=== PATIENT | male | born 1970 | race African-American/Black ===

== ENCOUNTER 2020-03-22 15:23 | Inpatient (IN) | payer OTHER ==
[2020-03-22 17:31] VITALS: BMI 28.1
--- NOTE | 2020-03-22 18:00 | HP ---
CIWA Score Nausea/Vomitin-No Nausea/No Vomiting Muscle Tremors: None Anxiety: 1-Mildly Anxious Agitation: 0-Normal Activity Paroxysmal Sweats: No Perspiration Orientation: 0-Oriented Tacttile Disturbances: 0-None Auditory Disturbances: 0-None Visual Disturbances: 0-None Headache: 0-None Present CIWA-Ar Total Score: 1 - Admission Criteria OASAS Guidelines: Admission for Medically Managed Detox: Requires at least one of the followin. CIWA greater than 12 2. Seizures within the past 24 hours 3. Delirium tremens within the past 24 hours 4. Hallucinations within the past 24 hours 5. Acute intervention needed for co occurring medical disorder 6. Acute intervention needed for co occurring psychiatric disorder 7. Severe withdrawal that cannot be handled at a lower level of care (continued vomiting, continued diarrhea, abnormal vital signs) requiring intravenous medication and/or fluids 8. Admitting History and Physical - Admission Chief Complaint: I am here for rehab. History of Present Illness: Patient is a 50 year old male with past medical history of major depression( no Wellbutrin), alcohol use disorder with recent DWI which he sustain right fifth digit injury. Patient was started on Doxycycline on 03/09 for right fifth digit infection.Patient was sent [facility] for alcohol rehab. Last alcohol drink was 02/20/20. History Source: Patient Limitations to Obtaining History: No Limitations - Smoking History Smoking history: Never smoked Have you smoked in the past 12 months: No - Alcohol/Substance Use Hx Alcohol Use: Yes (last drink 02/22/20) History of Substance Use: reports: None - Social History Usual Living Arrangement: Yes: With Parent ADL: Independent History of Recent Travel: No Admission [facility] Chief Complaint: I am here for alcohol detox. Allergies/Adverse Reactions: Allergies Allergy/AdvReac Type Severity Reaction Status Date / Time No Known Allergies Allergy Verified 03/22/20 17:46 History of Present Illness: Patient is a 50 year old male with past medical history of major depression( no Wellbutrin), alcohol use disorder with recent DWI which he sustain right fifth digit injury. Patient was started on Doxycycline on 03/09 for right fifth digit infection.Patient was sent [facility] for alcohol rehab. Last alcohol drink was 02/20/20. Labs for [facility] reviewed,unremarkable. Exam Limitations: No Limitations - Ebola screening Have you traveled outside of the country in the last 21 days: No Have you had contact with anyone from an Ebola affected area: No Have you been sick,other than usual withdrawal symptoms: No Do you have a fever: No - Review of Systems Constitutional: No Symptoms Reported EENT: reports: No Symptoms Reported Respiratory: reports: No Symptoms reported Cardiac: reports: No Symptoms Reported GI: reports: No Symptoms Reported : reports: No Symptoms Reported Musculoskeletal: reports: No Symptoms Reported Integumentary: reports: See HPI Neuro: reports: No Symptoms reported Endocrine: reports: No Symptoms Reported Hematology: reports: No Symptoms Reported Psychiatric: reports: No Sypmtoms Reported, Judgement Intact, Mood/Affect Appropiate, Orientated x3 Other Systems: Reviewed and Negative (Right fifth digit with 4 sutures intact.) Patient History - Smoking Cessation Smoking history: Never smoked Have you smoked in the past 12 months: No Hx Chewing Tobacco Use: No - Substances abused Alcohol Substance route: Oral Frequency: 3-6 times per week Amount used: Wine- 1 litre Age of first use: 32 Date of last use: 02/24/20 Admission Physical Exam BHS - Vital Signs Vital Signs: Vital Signs - 24 hr 03/22/20 03/22/20 17:30 17:50 Temperature 96.7 F L 96.7 F L Pulse Rate 77 77 Respiratory 18 18 Rate Blood Pressure 123/79 123/79 Vital Signs 03/22/20 03/22/20 17:30 17:50 Temperature 96.7 F L 96.7 F L Pulse Rate 77 77 Respiratory 18 18 Rate Blood Pressure 123/79 123/79 Labs from [facility] reviewed, unremarkable.Syphilis serology ordered. - Physical General Appearance: Yes: Within Normal Limits, No Apparent Distress, Nourished HEENTM: Yes: Within Normal Limits, Normal ENT Inspection Respiratory: Yes: Within Normal Limits, Lungs Clear, No Respiratory Distress, No Accessory Muscle Use Neck: Yes: Within Normal Limits Breast: Yes: Within Normal Limits Cardiology: Yes: Within Normal Limits, Regular Rhythm, S1, S2 Abdominal: Yes: Within Normal Limits Genitourinary: Yes: Within Normal Limits Back: Yes: Within Normal Limits, Normal Inspection Musculoskeletal: Yes: Within Normal Limits, full range of Motion, Gait Steady Extremities: Yes: Within Normal Limits, Normal Capillary Refill, Normal Inspection, Normal Range of Motion Neurological: Yes: Within Normal Limits, elementary math tutor II-XII NML intact, Fully Oriented, Alert, Normal Mood/Affect, Normal Response Integumentary: Yes: Within Normal Limits - Diagnostic (1) Alcohol use disorder Current Visit: Yes Status: Chronic Breathalyzer - Breathalyzer Breathalyzer: 0 Urine Drug Screen - Test Device Lot number: [id number] Expiration date: 04/25/21 - Control Is test valid?: Yes - Results Drug screen NEGATIVE: Yes Inpatient Rehab Admission - Rehab Decision to Admit Inpatient rehab admission?: Yes - Initial Determination Are CD services needed?: Yes Free of communicable disease: Yes Not in need of hospitalization: Yes - Rehab Admission Criteria Previous failed treatment: Yes Poor recovery environment: Yes Comorbidities: Yes Lacks judgement: Yes Patient is meeting Inpatient Rehab admission criteria:: Yes
[2020-03-22] MEDS ORDERED: IBUPROFEN 400 MG TABLET (FP) PO PRN (18:18)
[2020-03-22] MEDS ORDERED: MAGNESIUM HYDROX 2400MG/30ML ORAL SUSPENSION 30 ML CUP PO PRN (18:18)
[2020-03-22] MEDS ORDERED: P-EPHED 60MG/TRIPROLIDI 2.5MG TABLET PO PRN (18:18)
[2020-03-22] MEDS ORDERED: MAG HYDROX/AL HYDROX/SIMETH 30 ML UNIT-DOSE CUP PO PRN (18:18)
[2020-03-22] MEDS ORDERED: MAGNESIUM CITRATE 300 ML BOTTLE PO PRN (18:18)
[2020-03-22] MEDS ORDERED: ACETAMINOPHEN 325 MG TABLET (FP) PO PRN (18:18)
[2020-03-22] MEDS ORDERED: LOPERAMIDE HCL 2 MG CAPSULE PO PRN (18:18)
[2020-03-22] MEDS ORDERED: guaiFENesin 200 MG/10 ML 10 ML UNIT-DOSE CUPS PO PRN (18:18)
[2020-03-22] MEDS: hydrOXYzine PAMOATE 25 MG CAPSULE (FP) PO SCH (21:20)
[2020-03-22] MEDS: THIAMINE HCL 100 MG TABLET (FP) PO SCH (21:21)
[2020-03-22] MEDS: MELATONIN 5 MG TABLETS PO SCH (21:21)
[2020-03-23] MEDS: hydrOXYzine PAMOATE 25 MG CAPSULE (FP) PO SCH ×5 (07:02→21:27)
[2020-03-23] MEDS ORDERED: PT OWN MED DRAWER 7, Y5N ONE (08:53)
[2020-03-23] MEDS: PRENATAL VITAMINS W/ FOLIC ACID TABLET (FP) PO SCH (10:09)
--- NOTE | 2020-03-23 10:53 | CONSULT ---
[facility] Psychiatric Consult - Data Date of interview: 03/23/20 Admission source: [facility] Identifying data: Mr Carmona is a 50 years old single male, unemployed receiving unemployment benefit, living with his parents referred from [facility] on 03/22/20 for inpatient rehabilitation treatment for alcohol Substance Abuse History: Reports history of alcohol use. Refer to addiction counselor's summary for further information Medical History: Unremarkable Psychiatric History: This is patient's first admission to this facility. He reports that his first psychiatric contact occured in [address] Miles, a private psychiatrist in [place], [place] for depression. He was diagnosed with MDD and started on Luvox. Reports that he has been receiving psychiatric treatment o n & off since. Reports that he currently receives coutpatient psychiatric treatment at [facility] with Dr Joseph and he prescribed Wellbutrin XL 300 mg/day, Benadryl 50 mg/hs, Melatonin 5 mg/hs and Trazadone 50 mg /hs. Reports two previous psychiatric hospitalizations both at [facility] in February 2019 and most recently from March 12 to March 222019. Denies previous suicidal attempt. At present, denies experiencing depressive symptoms, S/H ideations. However, reports sleeping poorly without medications Physical/Sexual Abuse/Trauma History: Denies history of abuse as a child or DV relationship as an adult Mental Status Exam - Mental Status Exam Alert and Oriented to: Time, Place, Person Cognitive Function: Fair Patient Appearance: Well Groomed Mood: Hopeful, Euthymic Patient Behavior: Cooperative Speech Pattern: Clear Thought Process: Intact, Goal Oriented Thought Disorder: Not Present Hallucinations: Denies Suicidal Ideation: Denies Homicidal Ideation: Denies Insight/Judgement: Fair Sleep: Poorly Appetite: Good Muscle strength/Tone: Normal Gait/Station: Normal Psychiatric Findings - Problem List ([place] 1, 2,3) (1) MDD (major depressive disorder), recurrent episode, moderate Current Visit: Yes Status: Chronic (2) Alcohol-induced sleep disorder Current Visit: Yes Status: Acute (3) Alcohol dependence, uncomplicated Current Visit: Yes Status: Acute - Initial Treatment Plan Initial Treatment Plan: 1) Continue Wellbutrin XL 300 mg po daily, Benadryl 50 mg po HS, Melatonin 5 mg po HS and Trazadone 50 mg po HS. 2) Continue inpatient rehabilitation
[2020-03-23] MEDS: DOXYCYCLINE HYCLATE 100 MG CAPSULE PO SCH ×2 (13:01→17:24)
[2020-03-23] MEDS: MELATONIN 5 MG TABLETS PO SCH (21:25)
[2020-03-23] MEDS: diphenhydrAMINE HCL 50 MG CAPSULE PO PRN (21:26)
[2020-03-23] MEDS: traZODone HCL 50 MG TABLET (FP) PO SCH (21:26)
[2020-03-23] MEDS: THIAMINE HCL 100 MG TABLET (FP) PO SCH (21:27)
[2020-03-24] MEDS: hydrOXYzine PAMOATE 25 MG CAPSULE (FP) PO SCH (05:59)
[2020-03-24] MEDS: DOXYCYCLINE HYCLATE 100 MG CAPSULE PO SCH (09:52)
[2020-03-24] MEDS: PRENATAL VITAMINS W/ FOLIC ACID TABLET (FP) PO SCH (09:53)
[2020-03-24] MEDS: MELATONIN 5 MG TABLETS PO SCH (21:08)
[2020-03-24] MEDS: THIAMINE HCL 100 MG TABLET (FP) PO SCH (21:08)
[2020-03-24] MEDS: diphenhydrAMINE HCL 50 MG CAPSULE PO PRN (21:08)
[2020-03-24] MEDS: traZODone HCL 50 MG TABLET (FP) PO SCH (21:08)
--- NOTE | 2020-03-25 09:23 | PN ---
[facility] Progress Note Note: patient admitted to 3w rehab on 03/22. Stable, no complaints, adherent to medication regimen and treatment plan. No medical issues at this time. Vital Signs Period Temp Pulse Resp BP Sys/Doss Pulse Ox Last 24 Hr 97.1 F-97.8 F 71 18 130/85 98-98
[2020-03-25] MEDS: hydrOXYzine PAMOATE 25 MG CAPSULE (FP) PO PRN ×2 (10:05→14:36)
[2020-03-25] MEDS: PRENATAL VITAMINS W/ FOLIC ACID TABLET (FP) PO SCH (10:05)
[2020-03-25] MEDS: MELATONIN 5 MG TABLETS PO SCH (21:17)
[2020-03-25] MEDS: diphenhydrAMINE HCL 50 MG CAPSULE PO PRN (21:17)
[2020-03-25] MEDS: THIAMINE HCL 100 MG TABLET (FP) PO SCH (21:17)
[2020-03-25] MEDS: traZODone HCL 50 MG TABLET (FP) PO SCH (21:17)
[2020-03-26] MEDS: PRENATAL VITAMINS W/ FOLIC ACID TABLET (FP) PO SCH (10:09)
[2020-03-26] MEDS: hydrOXYzine PAMOATE 25 MG CAPSULE (FP) PO PRN (10:09)
[2020-03-26] MEDS ORDERED: PT OWN MED DRAWER 7, Y5N ONE (18:20)
[2020-03-26] MEDS: MELATONIN 5 MG TABLETS PO SCH (21:08)
[2020-03-26] MEDS: traZODone HCL 50 MG TABLET (FP) PO SCH (21:08)
[2020-03-26] MEDS: diphenhydrAMINE HCL 50 MG CAPSULE PO PRN (21:08)
[2020-03-26] MEDS: THIAMINE HCL 100 MG TABLET (FP) PO SCH (21:08)
[2020-03-27] MEDS: PRENATAL VITAMINS W/ FOLIC ACID TABLET (FP) PO SCH (09:52)
[2020-03-27] MEDS: traZODone HCL 50 MG TABLET (FP) PO SCH (21:14)
[2020-03-27] MEDS: MELATONIN 5 MG TABLETS PO SCH (21:14)
[2020-03-27] MEDS: THIAMINE HCL 100 MG TABLET (FP) PO SCH (21:16)
[2020-03-27] MEDS: diphenhydrAMINE HCL 50 MG CAPSULE PO PRN (21:16)
[2020-03-28] MEDS: PRENATAL VITAMINS W/ FOLIC ACID TABLET (FP) PO SCH (10:06)
[2020-03-28] MEDS: MELATONIN 5 MG TABLETS PO SCH (21:09)
[2020-03-28] MEDS: traZODone HCL 50 MG TABLET (FP) PO SCH (21:09)
[2020-03-28] MEDS: THIAMINE HCL 100 MG TABLET (FP) PO SCH (21:09)
[2020-03-28] MEDS: diphenhydrAMINE HCL 50 MG CAPSULE PO PRN (21:09)
[2020-03-29] MEDS: PRENATAL VITAMINS W/ FOLIC ACID TABLET (FP) PO SCH (10:14)
[2020-03-29] MEDS: diphenhydrAMINE HCL 50 MG CAPSULE PO PRN (21:18)
[2020-03-29] MEDS: THIAMINE HCL 100 MG TABLET (FP) PO SCH (21:18)
[2020-03-29] MEDS: traZODone HCL 50 MG TABLET (FP) PO SCH (21:18)
[2020-03-29] MEDS: MELATONIN 5 MG TABLETS PO SCH (21:18)
[2020-03-30] MEDS: PRENATAL VITAMINS W/ FOLIC ACID TABLET (FP) PO SCH (09:58)
[2020-03-30] MEDS: hydrOXYzine PAMOATE 25 MG CAPSULE (FP) PO PRN ×2 (14:30→18:49)
[2020-03-30] MEDS: MELATONIN 5 MG TABLETS PO SCH (21:14)
[2020-03-30] MEDS: traZODone HCL 50 MG TABLET (FP) PO SCH (21:14)
[2020-03-30] MEDS: diphenhydrAMINE HCL 50 MG CAPSULE PO PRN (21:15)
[2020-03-30] MEDS: THIAMINE HCL 100 MG TABLET (FP) PO SCH (21:16)
[2020-03-31] MEDS: PRENATAL VITAMINS W/ FOLIC ACID TABLET (FP) PO SCH (10:30)
[2020-03-31] MEDS: traZODone HCL 50 MG TABLET (FP) PO SCH (21:39)
[2020-03-31] MEDS: MELATONIN 5 MG TABLETS PO SCH (21:39)
[2020-03-31] MEDS: diphenhydrAMINE HCL 50 MG CAPSULE PO PRN (21:39)
[2020-03-31] MEDS: THIAMINE HCL 100 MG TABLET (FP) PO SCH (21:41)
[2020-04-01] MEDS: PRENATAL VITAMINS W/ FOLIC ACID TABLET (FP) PO SCH (10:24)
[2020-04-01] MEDS: traZODone HCL 50 MG TABLET (FP) PO SCH (21:10)
[2020-04-01] MEDS: MELATONIN 5 MG TABLETS PO SCH (21:10)
[2020-04-01] MEDS: THIAMINE HCL 100 MG TABLET (FP) PO SCH (21:10)
[2020-04-01] MEDS: diphenhydrAMINE HCL 50 MG CAPSULE PO PRN (21:10)
[2020-04-02] MEDS ORDERED: PT OWN MED DRAWER 7, Y5N ONE (09:16)
[2020-04-02] MEDS: PRENATAL VITAMINS W/ FOLIC ACID TABLET (FP) PO SCH (10:30)
[2020-04-02] MEDS: MELATONIN 5 MG TABLETS PO SCH (21:48)
[2020-04-02] MEDS: THIAMINE HCL 100 MG TABLET (FP) PO SCH (21:48)
[2020-04-02] MEDS: traZODone HCL 50 MG TABLET (FP) PO SCH (21:48)
[2020-04-02] MEDS: diphenhydrAMINE HCL 50 MG CAPSULE PO PRN (21:48)
[2020-04-03] MEDS: PRENATAL VITAMINS W/ FOLIC ACID TABLET (FP) PO SCH (09:45)
[2020-04-03] MEDS: diphenhydrAMINE HCL 50 MG CAPSULE PO PRN (21:03)
[2020-04-03] MEDS: traZODone HCL 50 MG TABLET (FP) PO SCH (21:03)
[2020-04-03] MEDS: MELATONIN 5 MG TABLETS PO SCH (21:03)
[2020-04-03] MEDS: THIAMINE HCL 100 MG TABLET (FP) PO SCH (21:04)
[2020-04-04] MEDS: PRENATAL VITAMINS W/ FOLIC ACID TABLET (FP) PO SCH (09:09)
[2020-04-04] MEDS: MELATONIN 5 MG TABLETS PO SCH (21:32)
[2020-04-04] MEDS: traZODone HCL 50 MG TABLET (FP) PO SCH (21:32)
[2020-04-04] MEDS: THIAMINE HCL 100 MG TABLET (FP) PO SCH (21:32)
[2020-04-04] MEDS: diphenhydrAMINE HCL 50 MG CAPSULE PO PRN (21:32)
[2020-04-05] MEDS: PRENATAL VITAMINS W/ FOLIC ACID TABLET (FP) PO SCH (11:09)
[2020-04-05] MEDS: diphenhydrAMINE HCL 50 MG CAPSULE PO PRN (21:05)
[2020-04-05] MEDS: traZODone HCL 50 MG TABLET (FP) PO SCH (21:05)
[2020-04-05] MEDS: MELATONIN 5 MG TABLETS PO SCH (21:05)
[2020-04-05] MEDS: THIAMINE HCL 100 MG TABLET (FP) PO SCH (21:05)
[2020-04-06] MEDS: PRENATAL VITAMINS W/ FOLIC ACID TABLET (FP) PO SCH (10:07)
[2020-04-06] MEDS: traZODone HCL 50 MG TABLET (FP) PO SCH (21:28)
[2020-04-06] MEDS: diphenhydrAMINE HCL 50 MG CAPSULE PO PRN (21:28)
[2020-04-06] MEDS: MELATONIN 5 MG TABLETS PO SCH (21:28)
[2020-04-06] MEDS: THIAMINE HCL 100 MG TABLET (FP) PO SCH (21:29)
[2020-04-07] MEDS: PRENATAL VITAMINS W/ FOLIC ACID TABLET (FP) PO SCH (09:55)
[2020-04-07] MEDS: hydrOXYzine PAMOATE 25 MG CAPSULE (FP) PO PRN ×2 (17:45→22:16)
[2020-04-07] MEDS: MELATONIN 5 MG TABLETS PO SCH (21:17)
[2020-04-07] MEDS: diphenhydrAMINE HCL 50 MG CAPSULE PO PRN (21:17)
[2020-04-07] MEDS: traZODone HCL 50 MG TABLET (FP) PO SCH (21:17)
[2020-04-07] MEDS: THIAMINE HCL 100 MG TABLET (FP) PO SCH (21:17)
[2020-04-08] MEDS: PRENATAL VITAMINS W/ FOLIC ACID TABLET (FP) PO SCH (10:20)
[2020-04-08] MEDS: hydrOXYzine PAMOATE 25 MG CAPSULE (FP) PO PRN (10:20)
[2020-04-08] MEDS: MELATONIN 5 MG TABLETS PO SCH (21:29)
[2020-04-08] MEDS: traZODone HCL 50 MG TABLET (FP) PO SCH (21:29)
[2020-04-08] MEDS: diphenhydrAMINE HCL 50 MG CAPSULE PO PRN (21:29)
[2020-04-08] MEDS: THIAMINE HCL 100 MG TABLET (FP) PO SCH (21:30)
[2020-04-09] MEDS: PRENATAL VITAMINS W/ FOLIC ACID TABLET (FP) PO SCH (10:23)
[2020-04-09] MEDS: traZODone HCL 50 MG TABLET (FP) PO SCH (22:25)
[2020-04-09] MEDS: THIAMINE HCL 100 MG TABLET (FP) PO SCH (22:25)
[2020-04-09] MEDS: diphenhydrAMINE HCL 50 MG CAPSULE PO PRN (22:28)
[2020-04-09] MEDS: MELATONIN 5 MG TABLETS PO SCH (22:48)
[2020-04-10] MEDS: PRENATAL VITAMINS W/ FOLIC ACID TABLET (FP) PO SCH (10:27)
[2020-04-10] MEDS: diphenhydrAMINE HCL 50 MG CAPSULE PO PRN (21:42)
[2020-04-10] MEDS: traZODone HCL 50 MG TABLET (FP) PO SCH (21:43)
[2020-04-10] MEDS: MELATONIN 5 MG TABLETS PO SCH (21:43)
[2020-04-10] MEDS: THIAMINE HCL 100 MG TABLET (FP) PO SCH (21:43)
[2020-04-11] MEDS: PRENATAL VITAMINS W/ FOLIC ACID TABLET (FP) PO SCH (10:28)
[2020-04-11] MEDS: traZODone HCL 50 MG TABLET (FP) PO SCH (21:19)
[2020-04-11] MEDS: MELATONIN 5 MG TABLETS PO SCH (21:19)
[2020-04-11] MEDS: THIAMINE HCL 100 MG TABLET (FP) PO SCH (21:19)
[2020-04-11] MEDS: diphenhydrAMINE HCL 50 MG CAPSULE PO PRN (21:21)
[2020-04-12] MEDS ORDERED: PT OWN MED DRAWER 7, Y5N ONE (08:49)
[2020-04-12] MEDS: PRENATAL VITAMINS W/ FOLIC ACID TABLET (FP) PO SCH (10:28)
[2020-04-12] MEDS: hydrOXYzine PAMOATE 25 MG CAPSULE (FP) PO PRN ×2 (18:03→22:01)
[2020-04-12] MEDS: MELATONIN 5 MG TABLETS PO SCH (22:01)
[2020-04-12] MEDS: traZODone HCL 50 MG TABLET (FP) PO SCH (22:01)
[2020-04-12] MEDS: diphenhydrAMINE HCL 50 MG CAPSULE PO PRN (22:02)
[2020-04-12] MEDS: THIAMINE HCL 100 MG TABLET (FP) PO SCH (22:02)
[2020-04-13] MEDS: PRENATAL VITAMINS W/ FOLIC ACID TABLET (FP) PO SCH (10:20)
[2020-04-13] MEDS: traZODone HCL 50 MG TABLET (FP) PO SCH (21:20)
[2020-04-13] MEDS: diphenhydrAMINE HCL 50 MG CAPSULE PO PRN (21:21)
[2020-04-13] MEDS: THIAMINE HCL 100 MG TABLET (FP) PO SCH (21:21)
[2020-04-13] MEDS: MELATONIN 5 MG TABLETS PO SCH (21:21)
[2020-04-14] MEDS: PRENATAL VITAMINS W/ FOLIC ACID TABLET (FP) PO SCH (10:44)
[2020-04-14] MEDS: hydrOXYzine PAMOATE 25 MG CAPSULE (FP) PO PRN ×2 (18:10→22:31)
[2020-04-14] MEDS: MELATONIN 5 MG TABLETS PO SCH (21:53)
[2020-04-14] MEDS: diphenhydrAMINE HCL 50 MG CAPSULE PO PRN (21:53)
[2020-04-14] MEDS: traZODone HCL 50 MG TABLET (FP) PO SCH (21:53)
[2020-04-14] MEDS: THIAMINE HCL 100 MG TABLET (FP) PO SCH (21:53)
[2020-04-15] MEDS: PRENATAL VITAMINS W/ FOLIC ACID TABLET (FP) PO SCH (10:08)
[2020-04-15] MEDS: hydrOXYzine PAMOATE 25 MG CAPSULE (FP) PO PRN ×3 (10:09→21:14)
--- NOTE | 2020-04-15 10:53 | PN ---
S Progress Note (SOAP) Subjective: Patient c/o left sided chest corbett radiating to back in a direct line, without radiation, severity about a 2-3/10. No other symptoms-denies nausea, shortness of breath, diaphoresis, denies radiation to arm or leg. Denies strenuous physical activity. Denies history of cardiac disease or hypertension. Endorses ETOH use and elevated liver enzymes the last time he saw his medical provider. Patient is also reporting that he is experiencing a mild reaction to smelling peanut butter in the unit and it is affecting his breathing. He does not want any pain medication. Objective: P/E General: no apparent distress HEENTM: normocephalic, PERRLA, EOMI, no circumoral cyanosis noted, mucous membranes pink NECK: supple RESP: all lung field clear, respirations unlabored, no accessory muscle use CARDIAC: s1 s2 audible, EKG shows NSR, +pulses MSK: full weight bearing, full ROM, steady gait 04/15/20 10:53 04/15/20 12:03 Assessment: unspecific chest pain Possible pain radiating from gallbladder Unlikely to be cardiac in nature, limited radiation, mild pain, no accompanying symptoms, NSR, no hx of cardiac issues 04/15/20 12:06 04/15/20 12:07 Plan: Mylanta 30 ml now chemistry panel drawn Will continue to monitor
[2020-04-15 14:33] LABS: EOS % 4.3 % (0-4.5); HEMATOCRIT 47.3 % (35.4-49); HEMOGLOBIN 15.5 GM/dL (11.7-16.9); LYMPH % 27.3 % (8-40); MCHC 32.7 g/dl (32.0-35.9); MEAN CELL VOLUME 91.8 fl (80-96); MEAN PLT VOLUME 8.6 fl (7.5-11.1); MONO % 9.4 % (3.8-10.2); PLATELET COUNT 226 K/MM3 (134-434); RBC 5.15 M/mm3 (4.00-5.60); RDW 13.3 % (11.9-15.9); WHITE BLOOD COUNT 7.1 K/mm3 (4.0-10.0)
[2020-04-15 14:43] LABS: BLOOD UREA NITROGEN 18.5 mg/dL (7-18); CALCIUM 9.3 mg/dL (8.5-10.1); CREATININE 1.4 mg/dL (0.55-1.3); POTASSIUM 4.3 mmol/L (3.5-5.1)
--- NOTE | 2020-04-15 16:58 | EKG ---
Test Reason : Blood Pressure : / mmHG Vent. Rate : 068 BPM Atrial Rate : 068 BPM P-R Int : 180 ms QRS Dur : 114 ms QT Int : 422 ms P-R-T Axes : 054 009 039 degrees QTc Int : 448 ms NORMAL SINUS RHYTHM NORMAL ECG NO PREVIOUS ECGS AVAILABLE Confirmed by GABRIEL ROMAN MD ([id number]) on 04/15/2020 4:58:06 PM Referred By: Confirmed By:GABRIEL ROMAN MD
[2020-04-15] MEDS: THIAMINE HCL 100 MG TABLET (FP) PO SCH (21:14)
[2020-04-15] MEDS: diphenhydrAMINE HCL 50 MG CAPSULE PO PRN (21:14)
[2020-04-15] MEDS: MELATONIN 5 MG TABLETS PO SCH (21:14)
[2020-04-15] MEDS: traZODone HCL 50 MG TABLET (FP) PO SCH (21:14)
[2020-04-16] MEDS: PRENATAL VITAMINS W/ FOLIC ACID TABLET (FP) PO SCH (10:03)
[2020-04-16] MEDS: hydrOXYzine PAMOATE 25 MG CAPSULE (FP) PO PRN ×2 (17:57→21:33)
[2020-04-16] MEDS: MELATONIN 5 MG TABLETS PO SCH (21:32)
[2020-04-16] MEDS: diphenhydrAMINE HCL 50 MG CAPSULE PO PRN (21:32)
[2020-04-16] MEDS: traZODone HCL 50 MG TABLET (FP) PO SCH (21:32)
[2020-04-16] MEDS: THIAMINE HCL 100 MG TABLET (FP) PO SCH (21:33)
[2020-04-17] MEDS: PRENATAL VITAMINS W/ FOLIC ACID TABLET (FP) PO SCH (10:24)
[2020-04-17] MEDS: THIAMINE HCL 100 MG TABLET (FP) PO SCH (21:23)
[2020-04-17] MEDS: traZODone HCL 50 MG TABLET (FP) PO SCH (21:23)
[2020-04-17] MEDS: diphenhydrAMINE HCL 50 MG CAPSULE PO PRN (21:23)
[2020-04-17] MEDS: MELATONIN 5 MG TABLETS PO SCH (21:25)
[2020-04-18] MEDS: PRENATAL VITAMINS W/ FOLIC ACID TABLET (FP) PO SCH (10:06)
--- NOTE | 2020-04-18 12:56 | PN ---
[facility] Progress Note Note: Patient is scheduled for discharge tomorrow. Scripts for 30 days supply of medications(Wellbutrin XL 300 mg/day, Benadryl 50 mg/hs, Melatonin 5 mg/hs, Trazadone 50 mg/hs) will be electronically transmitted to [facility], [address] [place], [place] [id number]
[2020-04-18] MEDS: hydrOXYzine PAMOATE 25 MG CAPSULE (FP) PO PRN (16:33)
[2020-04-18] MEDS: diphenhydrAMINE HCL 50 MG CAPSULE PO PRN (21:35)
[2020-04-18] MEDS: traZODone HCL 50 MG TABLET (FP) PO SCH (21:35)
[2020-04-18] MEDS: THIAMINE HCL 100 MG TABLET (FP) PO SCH (21:35)
[2020-04-18] MEDS: MELATONIN 5 MG TABLETS PO SCH (21:36)
[2020-04-19 06:48] VITALS: BP 130/76; PULSE 71; TEMP 97.8
[2020-04-19] MEDS: PRENATAL VITAMINS W/ FOLIC ACID TABLET (FP) PO SCH (09:42)
--- NOTE | 2020-04-19 09:43 | DS ---
[facility] Rehab Discharge Summary - [facility] Rehab Discharge Summary Admission Date: 03/22/20 Discharge Date: 04/19/20 - History Present History: Alcohol dependence - Discharge Physical Exam Vital Signs: Vital Signs Temperature 97.8 F 04/19/20 06:18 Pulse Rate 71 04/19/20 06:18 Respiratory Rate 18 04/19/20 06:18 Blood Pressure 130/76 04/19/20 06:18 O2 Sat by Pulse Oximetry (%) 97 04/19/20 06:18 Laboratory Tests 03/23/20 04/15/20 04/15/20 09:40 10:30 10:30 WBC 7.1 RBC 5.15 Hgb 15.5 Hct 47.3 MCV 91.8 MCH 30.0 MCHC 32.7 RDW 13.3 Plt Count 226 MPV 8.6 Absolute Neuts (auto) 4.1 Neutrophils % 58.0 Lymphocytes % 27.3 Monocytes % 9.4 Eosinophils % 4.3 Basophils % 1.0 Nucleated RBC % 7 H Sodium 140 Potassium 4.3 Chloride 105 Carbon Dioxide 29 Anion Gap 6 L BUN 18.5 H Creatinine 1.4 H Est GFR (CKD-EPI)AfAm 67.42 Est GFR (CKD-EPI)NonAf 58.17 Random Glucose 85 Calcium 9.3 Syphilis Serology Non-reactive COVID-19 ([place]) 04/16/20 10:30 WBC RBC Hgb Hct MCV MCH MCHC RDW Plt Count MPV Absolute Neuts (auto) Neutrophils % Lymphocytes % Monocytes % Eosinophils % Basophils % Nucleated RBC % Sodium Potassium Chloride Carbon Dioxide Anion Gap BUN Creatinine Est GFR (CKD-EPI)AfAm Est GFR (CKD-EPI)NonAf Random Glucose Calcium Syphilis Serology COVID-19 ([place]) Not detected ROS: DENIES SI/HI, SHAKES, SWEATS AND ALCOHOL CRAVINGS PE ALERT AND ORIENTED X 3 SKIN WARM AND DRY IN NAD +PERRLA,EOMS INTACT BL EXT FULL ROM, AMB AD POLLY NO TREMORS DENIES SI/HI A/P ALCOHOL DEPENDENCE MEDICALLY STABLE FOR D/C - Treatment Discharge Condition: Discharge condition good Hospital Course: PATIENT D/C FROM REHAB TODAY FOR ALCOHOL DEPENDENCE. HE IS MEDICALLY STABLE AND DENIES S/HI. DURING COURSE OF TREATMENT, PATIENT ATTENDED GROUP MEETINGS, 1:1 SESSION WITH COUNSELING STAFF AND EVALUATED AND TREATED BY PSYCH TEAM. AFTERCARE ARRANGED FOR [facility] OTP, APPT 04/21/2020 AT 1PM. PATIENT MEDICALLY ADVISED TO FOLLOW UP WITH PCP/PSYCH MD RECOMMENDED. Ambulatory Orders Bupropion HCl [Wellbutrin Xl] 300 mg PO DAILY 03/22/20 Diphenhydramine [Benadryl -] 50 mg PO HS 03/22/20 Doxycycline Hyclate [Doryx] 03/22/20 Melatonin 5 mg PO HS 03/22/20 traZODone HCL [Trazodone HCl] 50 mg PO HS 03/22/20 Bupropion HCl [Wellbutrin Xl -] 300 mg PO DAILY #30 tab.sr.24h 04/18/20 Diphenhydramine [Benadryl Capsule -] 50 mg PO HS PRN #30 capsule 04/18/20 Melatonin 5 mg PO HS #30 tab 04/18/20 traZODone HCL [Desyrel -] 50 mg PO HS #30 tablet 04/18/20 - Medication Discharge Medications: Ambulatory Orders Bupropion HCl [Wellbutrin Xl] 300 mg PO DAILY 03/22/20 Diphenhydramine [Benadryl -] 50 mg PO HS 03/22/20 Doxycycline Hyclate [Doryx] 03/22/20 Melatonin 5 mg PO HS 03/22/20 traZODone HCL [Trazodone HCl] 50 mg PO HS 03/22/20 Bupropion HCl [Wellbutrin Xl -] 300 mg PO DAILY #30 tab.sr.24h 04/18/20 Diphenhydramine [Benadryl Capsule -] 50 mg PO HS PRN #30 capsule 04/18/20 Melatonin 5 mg PO HS #30 tab 04/18/20 traZODone HCL [Desyrel -] 50 mg PO HS #30 tablet 04/18/20 - Medication-Assisted Treatment (MAT) Medication-Assisted Treatment (MAT): No - Discharge Instructions Diet, activity, other medical instructions: Diet: REG TOLERATED Activity: AMB AD POLLY TOLERATED Other medical instructions: F/U WITH PCP RECOMMENDED - Follow-up Referral Minutes to complete discharge: 40 - AMA Did Patient Leave Against Medical Advice: No
== END 2020-04-19 09:45 | disposition home or self-care (01) | DRG 772 ==
LOC: YASAS 15:23 → Y3W 18:11
PROVIDERS: ADMIT Allergy & Immunology; ATTEND Allergy & Immunology
PROC: HZ42ZZZ Group Counseling for Substance Abuse Treatment, Cognitive-Behavioral (ICD-10-PCS; principal; 2020-03-22)
DX: F10.20 Alcohol dependence, uncomplicated (principal); F33.1 Major depressive disorder, recurrent, moderate; F10.282 Alcohol dependence with alcohol-induced sleep disorder
CPT/HCPCS: 36415; 80048; 85025; 86780; 93005; 93010; U0003